=== PATIENT | female | born 1995 | race Hispanic/Latino ===

== ENCOUNTER 2025-04-03 09:58 | Emergency (ER) | payer BC ==
[2025-04-03] MEDS ORDERED: HYDROcodone/Acetaminophen 10/325 mg Tablet ONE (10:24)
[2025-04-03 10:44] LABS: #Basophils Less than 0.03 10x3/uL (0.0-0.2); #Eosinophils 0.10 10x3/uL (0.0-0.7); #Monocytes 0.47 10x3/uL (0.11-0.59); #Neutrophils 4.21 10x3/uL (1.40-6.50); %Basophils 0.3 % (0.0-1.0); %Eosinophils 1.4 % (0.0-10.0); %Lymphocytes 32.7 % (21.0-51.0); %Monocytes 6.5 % (0.0-10.0); %Neutrophils 58.7 % (42.0-75.0); Hematocrit 39.3 % (36.0-47.0); Hemoglobin 13.0 g/dL (12.0-16.0); Mean Corpuscular Hemoglobin 27.8 pg (27.0-31.0); Mean Corpuscular Volume 84.2 fL (78.0-98.0); Platelet Count 277 10x3/uL (130-400); Red Blood Cell (RBC) Count 4.67 mill/uL (4.20-5.40); White Blood Cell (WBC) Count 7.18 10x3/uL (4.8-10.8)
[2025-04-03 11:05] LABS: ALT (SGPT) Less than 7 U/L (Less than 34); AST (SGOT) 13 U/L (11-34); Albumin 4.1 g/dL (3.1-4.5); Alkaline Phosphatase 71 U/L (40-110); Anion Gap 17 mmol/L (10-20); BUN (Urea Nitrogen) 11 mg/dL (7.0-18.7); Bilirubin, Total 0.8 mg/dL (0.3-1.2); Calc. Creatinine Clearance 0 mL/min (70-130); Calcium 9.1 mg/dL (7.8-10.44); Carbon Dioxide 19 mmol/L (22-29); Chloride 110 mmol/L (98-107); Globulin 3.0 g/dL (2.4-3.5); Glucose 105 mg/dL (70-105); Magnesium 2.0 mg/dL (1.6-2.6); Potassium 3.8 mmol/L (3.5-5.1); Sodium 142 mmol/L (136-145)
[2025-04-03] MEDS ORDERED: Lidocaine 1% w/Epinephrine 1:100K 20 ML VIAL ONE (11:06)
[2025-04-03] MEDS ORDERED: Boostrix 0.5 ML (Tdap) VIAL (>/=7 yrs of age) ONE (11:07)
[2025-04-03 11:15] LABS: BHCG - Serum Negative (NEGATIVE); Pregs Control Bar Appear? YES (CONTROL BAR)
[2025-04-03 11:16] LABS: Pregs Control Background? CLEAR/WHITE (CLR/WHITE)
== END 2025-04-03 12:47 | disposition home or self-care (01) ==
LOC: ERS 09:58
DX: R55 Syncope and collapse (principal); S01.01XA Laceration without foreign body of scalp, initial encounter; Z23 Encounter for immunization; W18.30XA Fall on same level, unspecified, initial encounter
CPT/HCPCS: 12034; 70450; 70486; 72125; 80053; 83735; 84484; 84703; 85025; 90471; 90715; 93005